=== PATIENT | male | born 1990 | race Caucasian/White ===

== ENCOUNTER 2018-06-26 00:19 | Emergency (ER) | payer OTHER ==
[~2018-06-26] VITALS: Ht 165.1 cm; Wt 100.7 kg
[2018-06-26 00:27] VITALS: Ht 165.1 cm; Wt 100.7 kg
[2018-06-26 02:15] VITALS: BP 137/74
== END 2018-06-26 02:15 | disposition home or self-care (01) ==
LOC: ED 00:19
DX: J20.9 Acute bronchitis, unspecified (principal); R11.2 Nausea with vomiting, unspecified
CPT/HCPCS: J2550; Q0162